=== PATIENT | male | born 1965 | race Caucasian/White ===

== ENCOUNTER 2018-05-27 06:00 | Observation (INO) | payer OTHER ==
[2018-05-27] MEDS ORDERED: ceFAZolin 2 GM/DEXTROSE 100 ML IV ONE (06:04)
[2018-05-27] MEDS ORDERED: DEXAMETHASONE 4 MG/ML VIAL IVP ONE (06:04)
[2018-05-27] MEDS ORDERED: ACETAMINOPHEN 325 MG TAB PO ONE (06:04)
[2018-05-27] MEDS ORDERED: FAMOTIDINE 20 MG TAB PO ONE (06:04)
[2018-05-27] MEDS ORDERED: LR 1,000 ML IV ONE (06:06)
[2018-05-27] MEDS ORDERED: LIDOCAINE 1% 2 ML INJ ID PRN (06:06)
[2018-05-27] MEDS ORDERED: MIDAZOLAM 2 MG/2 ML VIAL IVP ONE (06:58)
--- NOTE | 2018-05-27 06:59 | PDANEPAE ---
ANE History of Present Illness Patient presents for L TKA ANE Past Medical History - Cardiovascular History Hx Hypertension: Yes Hx Arrhythmias: No Hx Chest Pain: No Hx Coronary Artery / Peripheral Vascular Disease: No Hx CHF / Valvular Disease: No Hx Palpitations: No - Pulmonary History Hx COPD: No Hx Asthma/Reactive Airway Disease: No Hx Recent Upper Respiratory Infection: No Hx Oxygen in Use at Home: No Hx Sleep Apnea: No Sleep Apnea Screening Result - Last Documented: Positive - Neurologic History Hx Cerebrovascular Accident: No Hx Seizures: No Hx Dementia: No - Endocrine History Hx Diabetes: No - Renal History Hx Renal Disorders: No - Liver History Hx Hepatic Disorders: No - Neurological & Psychiatric Hx Hx Neurological and Psychiatric Disorders: No - Cancer History Hx Cancer: No - Congenital Disorder History Hx Congenital Disorders: No - GI History Hx Gastrointestinal Disorders: No - Other Health History Other Health History: none - Chronic Pain History Chronic Pain: No - Surgical History Prior Surgeries: microdisectomy 2010. hydrocele 2017 ANE Review of Systems Review of Systems: - Exercise capacity METS (RN): 4 METS ANE Patient History - Allergies Allergies/Adverse Reactions: No Known Allergies Allergy (Unverified 04/28/18 15:31) - Home Medications Home medications: home medication list seen and reviewed Home Medications: Herbals/Supplements -Info Only 1 ea PO DAILY 04/28/18 [Last Taken Unknown] Hydrochlorothiazide [HCTZ (*)] 25 mg PO DAILY 04/28/18 [Last Taken Unknown] Losartan Potassium [Cozaar 50 mg (*)] 50 mg PO DAILY 04/28/18 [Last Taken Unknown] Rosuvastatin Calcium [Crestor 20mg (*)] 20 mg PO DAILY 04/28/18 [Last Taken Unknown] amLODIPine BESYLATE [Norvasc 10 mg (*)] 10 mg PO DAILY 04/28/18 [Last Taken Unknown] - NPO status NPO Status: no food or drink >8 hours NPO Since - Liquids (Date): 05/26/18 NPO Since - Liquids (Time): 22:00 NPO Since - Solids (Date): 05/26/18 NPO Since - Solids (Time): 18:30 - Smoking Hx Smoking Status: Never smoked - Family Anes Hx Family Hx Anesthesia Complications: none ANE Labs/Vital Signs - Vital Signs Blood Pressure: 134/84 Heart Rate: 71 Respiratory Rate: 16 O2 Sat (%): 94 Height: 190.5 cm Weight: 104.326 kg ANE Physical Exam - Airway Mallampati Score: Class 2 Mouth exam: normal dental/mouth exam - Pulmonary Pulmonary: no respiratory distress - Cardiovascular Cardiovascular: regular rate and rhythym - ASA Status ASA Status: II ANE Anesthesia Plan Anesthesia Plan: spinal (SAB vs GA, RBA discussed) Regional Anesthesia: single shot NB
[2018-05-27] MEDS ORDERED: MIDAZOLAM 2 MG/2 ML VIAL ONE (07:01)
[2018-05-27] MEDS ORDERED: PROPOFOL/EMULSION 500 MG/50 ML BOTTLE IV ONE ×2 (07:08→07:47)
--- NOTE | 2018-05-27 07:11 | PDHPUP ---
History & Physical Update H&P update statement: This history and physical update is based on an assessment of the patient which was completed after admission or registration (within 24 hours), but prior to the surgery/procedure. H&P update: H&P reviewed & patient examined, no change in patient's condition since H&P completed
[2018-05-27] MEDS ORDERED: fentaNYL 100 MCG/2 ML INJ ONE ×3 (07:22→09:02)
[2018-05-27] MEDS ORDERED: DEXAMETHASONE 4 MG/ML VIAL ONE (07:43)
[2018-05-27] MEDS ORDERED: ONDANSETRON 4 MG/2 ML VIAL ONE (07:43)
[2018-05-27] MEDS ORDERED: VANCOMYCIN 1 GM VIAL ONE (08:01)
[2018-05-27] MEDS ORDERED: oxyCODONE IR 5 MG TAB PO PRN (08:07)
[2018-05-27] MEDS ORDERED: NALOXONE HCL 0.4 MG/ML INJ IVP PRN (08:07)
[2018-05-27] MEDS ORDERED: ONDANSETRON 4 MG/2 ML VIAL IVP PRN ×2 (08:07→08:47)
[2018-05-27] MEDS ORDERED: HYDROCODONE/APAP 5/325 TAB PO PRN (08:07)
[2018-05-27] MEDS ORDERED: ONDANSETRON DISINTEGRATING 4 MG TAB PO PRN (08:47)
[2018-05-27] MEDS ORDERED: DIPHENOXYLATE/ATROPINE LOMOTIL 1 TAB PO PRN (08:47)
[2018-05-27] MEDS ORDERED: POLYETHYLENE GLYCOL 3350 17 GM PKT PO PRN (08:47)
[2018-05-27] MEDS ORDERED: MAGNESIUM HYDROXIDE 30 ML UDCUP PO PRN (08:47)
[2018-05-27] MEDS ORDERED: PROMETHAZINE HCL 25 MG SUPPR PR PRN (08:47)
[2018-05-27] MEDS ORDERED: BISACODYL 10 MG SUPP PR PRN (08:47)
[2018-05-27] MEDS ORDERED: METOCLOPRAMIDE 10 MG/2 ML VIAL IVP PRN (08:47)
[2018-05-27] MEDS ORDERED: CYCLOBENZAPRINE 10 MG TAB PO PRN (08:47)
[2018-05-27] MEDS ORDERED: TEMAZEPAM 15 MG CAP PO PRN (08:47)
[2018-05-27] MEDS ORDERED: LACTULOSE 20 GM/30 ML UDCUP PO PRN (08:47)
[2018-05-27] MEDS ORDERED: PROMETHAZINE HCL 25 MG/ML INJ IVP PRN (08:47)
[2018-05-27] MEDS ORDERED: diphenhydrAMINE 25 MG CAP PO PRN (08:47)
--- NOTE | 2018-05-27 08:51 | POSTOPPROG ---
Post Op Note Date of Operation: 05/27/18 Surgeon: Nina Pendleton Heel Dipper: benedicto pendleton Anesthesiologist: dr marley Anesthesia: GET(General Endotracheal), Spinal Pre-op Diagnosis: left knee OA Post-op Diagnosis: same Indication: L kene pain Procedure: L TKA robot assisted Findings: severe knee OA Inf/Abcess present in the surg proc area at time of surgery?: No EBL: 50-100
[2018-05-27] MEDS ORDERED: LR 1,000 ML IV SCH (09:00)
[2018-05-27] MEDS ORDERED: HYDROmorphONE/DILAUDID 1 MG/ML INJ ONE (09:02)
--- NOTE | 2018-05-27 09:02 | POSTANESTH ---
Post Anesthetic Evaluation Cardiovascular Status: Similar to Pre-Op Cond Respiratory Status: Similar to Pre-op Cond. Level of Consciousness/Mental Status: Alert and Oriented Pain Control: Inadeq, Add Tx Required Nausea/Vomiting Control: Adequate, Prn Tx Ordered Complications Possibly Related to Anesthesia: None Noted
[2018-05-27] MEDS: fentaNYL 100 MCG/2 ML INJ IVP PRN ×2 (09:06→09:14)
[2018-05-27] MEDS: HYDROmorphONE/DILAUDID 1 MG/ML INJ IVP PRN ×2 (09:07→09:15)
[2018-05-27] MEDS ORDERED: oxyCODONE IR 5 MG TAB ONE ×2 (09:31→10:08)
[2018-05-27] MEDS ORDERED: ROPIVACAINE 0.2% 80 MG, EPINEPHrine 0.2 MG, KETOROLAC TROMETHAMINE 30 MG in SYRINGE 0 ML IU ONE (10:00)
[2018-05-27] MEDS ORDERED: TRANEXAMIC ACID 3,000 MG in NS (SYRINGE) 50 ML IRR ONE (10:00)
[2018-05-27] MEDS: oxyCODONE IR 5 MG TAB PO PRN ×4 (10:31→23:40)
[2018-05-27] MEDS: ACETAMINOPHEN 325 MG TAB PO SCH ×3 (12:50→23:41)
[2018-05-27] MEDS: SENNOSIDES/DOCUSATE SODIUM TAB PO SCH ×2 (12:52→21:14)
[2018-05-27] MEDS: ceFAZolin 2 GM/DEXTROSE 100 ML IV SCH ×2 (14:57→21:14)
[2018-05-27] MEDS: ASPIRIN 81 MG CHEWABLE TAB PO SCH (21:13)
[2018-05-27] MEDS: FAMOTIDINE 20 MG TAB PO SCH (21:13)
[2018-05-28] MEDS: ACETAMINOPHEN 325 MG TAB PO SCH (06:27)
[2018-05-28 07:29] VITALS: BP 124/79
[2018-05-28] MEDS: FAMOTIDINE 20 MG TAB PO SCH (07:35)
[2018-05-28] MEDS: ASPIRIN 81 MG CHEWABLE TAB PO SCH (07:35)
[2018-05-28] MEDS ORDERED: HYDROCHLOROTHIAZIDE 25 MG TAB PO SCH (09:00)
[2018-05-28] MEDS ORDERED: LOSARTAN POTASSIUM 50 MG TAB PO SCH (09:00)
[2018-05-28] MEDS ORDERED: ROSUVASTATIN CALCIUM 20 MG TAB PO SCH (09:00)
[2018-05-28] MEDS: SENNOSIDES/DOCUSATE SODIUM TAB PO SCH (09:49)
--- NOTE | 2018-05-28 10:55 | ASMTLACE ---
LACE Length of stay for Answers: 2 days current admission Acuity / Level of Answers: No Care: Did the patient have an inpatient admission? Comorbidities - select Answers: Other Notes: HTN all that apply # of Emergency department Answers: 0 visits in the last 6 months Score: 3 Date Signed: 05/28/2018 10:54 AM Electronically Signed By:ARCELIA Way
--- NOTE | 2018-05-28 16:01 | GDS ---
ADMISSION DIAGNOSIS: Left knee osteoarthritis. DISCHARGE DIAGNOSIS: Left knee osteoarthritis. PROCEDURE: Left total knee arthroplasty, robotic assisted. VTE PROPHYLAXIS: Recommend aspirin 81 mg twice a day for 4 weeks. BRIEF DESCRIPTION OF HOSPITAL STAY: Patient was admitted for an elective joint arthroplasty. The patient tolerated the procedure well and has passed physical therapy. The patient was given appropriate antibiotic prophylaxis and venous thromboembolism prophylaxis. The patient's pain was well controlled on oral pain medication, patient was holding down food, and had urinated. Decision was made to discharge the patient. The patient was given post-operative prescriptions pre-operatively. PLAN: To follow up with Dr. Suero at [facility] scheduled, Dr. Suero's office 06/15 at 9:30 a.m. /[id number]/MODL MTDD
--- NOTE | 2018-05-28 20:14 | SOAPPROG ---
SOAP Progress Note Assessment/Plan: Assessment: Patient is doing well s/p TKA pain is well controlled VTE ppx: recommend ASA 81 mg BID Anemia: level expected initially postop D/c planning: d/c to home today Plan: 05/28/18 20:12 Subjective: pain is well controlled, anxious for d/c, denies SOB, chest pain and N/V. Objective: Vital Signs Temp Pulse Resp BP Pulse Ox 36.6 C 67 16 124/79 H 93 05/28/18 07:28 05/28/18 07:28 05/28/18 07:28 05/28/18 07:28 05/28/18 07:28 Laboratory Results 05/28/18 04:37 05/27/18 05/28/18 05/29/18 05:59 05:59 05:59 Intake Total 3680 700 Output Total 5430 4349 Balance -970 -1300 incision dressing is clean and dry, NVI, +pf/df ICD10 Worksheet Patient Problems: Problems Problem Status Onset Primary localized osteoarthritis of left knee Acute
--- NOTE | 2018-05-29 15:43 | GOP ---
DATE OF OPERATION: 05/27/2018 SURGEON: Leyla Suero MD CABLE ASSEMBLER: ALEXANDRO Leach ANESTHESIA: Spinal. PREOPERATIVE DIAGNOSIS: Left knee osteoarthritis. POSTOPERATIVE DIAGNOSIS: Left knee osteoarthritis PROCEDURE PERFORMED: Left total knee arthroplasty with computer navigation, robotic assist. FINDINGS: Pathology is severe tricompartmental osteoarthritis. ESTIMATED BLOOD LOSS: 30 cc. INDICATIONS: The patient is a 52-year-old male with severe and progressive pain and deformity of the left knee unresponsive to conservative care. The risks and benefits of surgical intervention were explained in detail. DESCRIPTION OF PROCEDURE: The patient was brought to the operative room and placed on the table in the supine position. Spinal anesthesia was induced without difficulty. A pneumatic tourniquet was applied about the left proximal thigh, and the leg was prepped and draped in a sterile fashion. The leg maciel was applied. After exsanguination by elevation the tourniquet was inflated to 250 mmHg. Incision was made anterior medial from the tibial tuberosity to a point 2 cm proximal to the superior pole of the patella. Medial parapatellar arthrotomy was carried out from the superior pole of the patella and posteriorly in line with the fibers of the Type II VMO. The medial collateral ligament was elevated and the infrapatellar fat pad was resected. The patella was everted and the articular surface was excised. A 40 mm patellar button was placed. Attention was turned first to the distal aspect of the femur. After exposure of the femur, 2 half pins were placed for fixation of the femoral array. In a similar fashion, 2 pins were placed anteromedial on the tibia for fixation of the tibial array. External land marking and registration of the hip center was performed without difficulty. Internal femoral and tibial registration was carried out without difficulty and the femoral and tibial checkpoints were placed and verified for accuracy. Attention was turned to the femur. The foot print for the size 7 femoral component was cut with the saw using the SwipeClock robotic system and verified for accuracy against the CT based plan. In a similar fashion, the saw was used to cut the footprint for the size 7 tibial component using the SwipeClock system and verified for accuracy against the CT based plan. The tibial articular surface was excised without difficulty, followed by the intercondylar box cut. The knee was extended and the remnants of the medial and lateral meniscus were excised. The posterior capsule was injected with ropivacaine, epinephrine and Toradol. A size 7 tibial tray was positioned. Trial reduction was then carried out. There was excellent range of motion, alignment, and stability using the 7 x 9 mm polyethylene. All trials were then removed. The joint was thoroughly irrigated and carefully dried. The X3 press-fit femoral and cemented tibial components were implanted. The permanent 9 mm polyethylene was placed without difficulty. The tourniquet was deflated and all bleeders were coagulated. The wound was thoroughly irrigated and closed using interrupted sutures of 2-0 Vicryl for the joint capsule. The subcu was closed with 3-0 Vicryl and the skin with 4-0 Monocryl. Dermabond and Steri-Strips were applied followed by a compressive dressing. The patient was then moved from the operating room to the recovery room in good condition, having tolerated the procedure well. /[id number]/MODL MTDD
== END 2018-05-28 11:12 | disposition home or self-care (01) ==
LOC: FSGY 06:00 → F3N 10:02 → EDSTATUS 12:15
PROVIDERS: ADMIT Orthopaedic Surgery; ATTEND Orthopaedic Surgery
PROC: 8E0YXCZ Robotic Assisted Procedure of Lower Extremity (ICD-10-PCS; principal; 2018-05-27 07:15)
PROC: 0SRD0JZ Replacement of Left Knee Joint with Synthetic Substitute, Open Approach (ICD-10-PCS; principal; 2018-05-27 07:15)
DX: M17.12 Unilateral primary osteoarthritis, left knee (principal)
CPT/HCPCS: 27447; 73560; 97110; 97116; 97161; G0378; C1713; J0171; J0690; J1100; J1170; J1885; J2250; J2405; J2704; J2795; J3010; J3370